=== PATIENT | female | born 1990 | race American Indian/Alaskan Native ===

== ENCOUNTER 2021-10-29 15:20 | Emergency (ER) | payer MEDICAID ==
[2021-10-29 15:55] VITALS: BP 144/92
--- NOTE | 2021-10-29 16:12 | Emergency Department Report ---
ED General Adult HPI - General Chief complaint: High BP Stated complaint: HIGH BLOOD PRESSURE Time Seen by Provider: 10/29/21 16:08 Source: patient Mode of arrival: Ambulatory Limitations: No Limitations - History of Present Illness Initial comments: 31-year-old female presents to the ER today with complaints of elevated blood pressure. Patient reports that she has been out of her blood pressure medication for the past 3 days. She states that she takes labetalol 300 mg 3 times a day and nifedipine 90 mg daily. She states that her blood pressures have been running in the 150s over 100s. She states to keep it down she has been taking some of her mom's blood pressure medication. She states that she recently moved from [place], and currently does not have a primary care doctor. She does have insurance to repeat state, they did give her referral but she found that it was a internet ecommerce specialist. Patient reports headache and some mild pain in her right forearm which started after she was mopping the floor yesterday but no additional symptoms at this time. MD Complaint: Out of BP medication/Elevated BP -: days(s) (3) - Related Data Previous Rx's Medication Instructions Recorded Last Taken Type Labetalol HCl [Labetalol 300mg TAB] 300 mg PO TID #90 tab 10/29/21 Unknown Rx NIFEdipine [Nifedipine ER] 90 mg PO DAILY #30 tab 10/29/21 Unknown Rx Allergies Allergy/AdvReac Type Severity Reaction Status Date / Time No Known Allergies Allergy Unverified 10/29/21 15:51 ED Review of Systems ROS: Stated complaint: HIGH BLOOD PRESSURE Other details as noted in HPI Comment: All other systems reviewed and negative Constitutional: denies: chills, fever Eyes: denies: eye pain, eye discharge, vision change ENT: denies: ear pain, throat pain, dental pain, hearing loss, epistaxis, congestion Respiratory: denies: cough, shortness of breath, SOB with exertion, stridor, wheezing Cardiovascular: denies: chest pain, palpitations, dyspnea on exertion, edema, syncope, paroxysmal nocturnal dyspnea Endocrine: no symptoms reported Gastrointestinal: denies: abdominal pain, nausea, vomiting, diarrhea, constipation, hematemesis, melena, hematochezia Genitourinary: denies: urgency, dysuria, frequency, hematuria, discharge, abnormal menses, dyspareunia Musculoskeletal: myalgia Skin: denies: rash, lesions Neurological: denies: headache, weakness, numbness, paresthesias, confusion, abnormal gait, vertigo Psychiatric: denies: anxiety, depression, auditory hallucinations, visual hallucinations, homicidal thoughts, suicidal thoughts Hematological/Lymphatic: denies: easy bleeding, easy bruising, swollen glands ED Past Medical Hx - Medications Home Medications: Home Medications Medication Instructions Recorded Confirmed Last Taken Type Labetalol HCl [Labetalol 300mg TAB] 300 mg PO TID #90 tab 10/29/21 Unknown Rx NIFEdipine [Nifedipine ER] 90 mg PO DAILY #30 tab 10/29/21 Unknown Rx ED Physical Exam - General Limitations: No Limitations General appearance: alert, in no apparent distress - Head Head exam: Present: atraumatic, normocephalic, normal inspection - Eye Eye exam: Present: normal appearance, PERRL, EOMI Pupils: Present: normal accommodation - ENT ENT exam: Present: normal exam, mucous membranes moist - Neck Neck exam: Present: normal inspection, full ROM. Absent: meningismus - Respiratory Respiratory exam: Present: normal lung sounds bilaterally, wheezes. Absent: respiratory distress, rales, rhonchi, stridor - Cardiovascular Cardiovascular Exam: Present: regular rate, normal rhythm, normal heart sounds - Expanded Upper Extremity Exam Right Forearm Wrist exam: Present: normal inspection, full ROM, tenderness (Mild soft tissue muscle tenderness noted to the forearm.). Absent: swelling, abrasion, laceration, ecchymosis, deformity, crepidus, dislocation, erythema, tenderness over anatomical snuff box Neuro motor exam: Present: wrist extension intact, thumb opposition intact, thum b IP flexion intact, thumb adduction intact, fingers 2-5 abduction intact Neurosensory exam: Present: radial nerve intact, ulnar nerve intact, median nerve intact Vascular: Present: normal capillary refill, radial pulse (Normal). Absent: vascular compromise - Back Exam Back exam: Present: full ROM - Neurological Exam Neurological exam: Present: alert, oriented X3, CN II-XII intact, normal gait. Absent: motor sensory deficit - Psychiatric Psychiatric exam: Present: normal affect, normal mood - Skin Skin exam: Present: intact ED Course Vital Signs 10/29/21 15:51 Temperature 98.6 F Pulse Rate 88 Respiratory 18 Rate Blood Pressure 144/92 [Right] O2 Sat by Pulse 98 Oximetry ED Medical Decision Making - Medical Decision Making 1634: 31-year-old female presents to the ER today with complaints of elevated blood pressure. Patient reports that she has been out of her blood pressure medication for the past 3 days. She states that she takes labetalol 300 mg 3 times a day and nifedipine 90 mg daily. She states that her blood pressures have been running in the 150s over 100s. She states to keep it down she has been taking some of her mom's blood pressure medication. She states that she recently moved from [place], and currently does not have a primary care doctor. She does have insurance to repeat state, they did give her referral but she found that it was a internet ecommerce specialist. Patient reports headache and some mild pain in her right forearm which started after she was mopping the floor yesterday but no additional symptoms at this time. Patient is well-appearing, nontoxic and not in any significant distress. She is awake alert oriented x3 with a GCS of 15. She has no focal neurological deficits on exam. No meningeal signs. Her gait is normal. Chest is clear to auscultation abdomen soft and nontender. Patient blood pressure only mildly elevated here in the ER, remainder vitals are stable. At this time there is no indication for emergent lab testing or imaging. Patient will be given a refill on her medications and recommend that she follow-up with primary care doctor listed on her discharge instructions or she can follow-up with someone at [facility] since her [facility] [employer] [facility] [employer] is at [facility] as well. Patient expressed understanding for instructions and agree with plan. Patient stable at time of discharge. Critical care attestation.: If time is entered above; I have spent that time in minutes in the direct care of this critically ill patient, excluding procedure time. ED Disposition Clinical Impression: Medication refill, Hypertension Disposition: HOME / SELF CARE / HOMELESS Is pt being admited?: No Does the pt Need Aspirin: No Condition: Stable Instructions: Medicine Refill at the Emergency Department, Managing Your Hypertension, Hypertension, Adult, Hypertension (ED) Additional Instructions: I recommend that you start taking the labetalol and nifedipine as prescribed for your blood pressure. I recommend that you follow-up with primary care doctor. You can call the number on your [employer] insurance and they can direct you to a primary care doctor or you can follow-up with a primary care doctor at [facility] or your [employer] is. Return to the ER if anything changes or worsens in any way. Prescriptions: Labetalol HCl [Labetalol 300mg TAB] 300 mg PO TID #90 tab NIFEdipine [Nifedipine ER] 90 mg PO DAILY #30 tab Referrals: SONNY RODRIGUEZ MD [Staff Physician] - 3-5 Days Time of Disposition: 16:11
== END 2021-10-29 16:42 | disposition home or self-care (01) ==
LOC: ED 15:20
DX: I10 Essential (primary) hypertension (principal); Z76.0 Encounter for issue of repeat prescription
CPT/HCPCS: 99282

== ENCOUNTER 2021-12-15 18:20 | Emergency (ER) | payer MEDICAID ==
[2021-12-15 20:21] VITALS: BP 163/102
== END 2021-12-16 12:12 | disposition left against medical advice (07) ==
LOC: ED 18:20
DX: O72.1 Other immediate postpartum hemorrhage (principal); Z53.21 Procedure and treatment not carried out due to patient leaving prior to being seen by health care provider